=== PATIENT | male | born 1975 | race Caucasian/White ===

== ENCOUNTER 2017-11-22 08:03 | Emergency (ER) | payer OTHER ==
[2017-11-22 08:30] VITALS: BP 128/78
--- NOTE | 2017-11-22 08:51 | RAD ---
Indication: Right little toe injury. 3 views of the right little toe demonstrates no fracture. No other bone or joint abnormality is identified. IMPRESSION: No fracture of the right toe is noted.
--- NOTE | 2017-11-22 14:42 | UC ---
Austin Gonzalez Stephanie, scribed for Cecille Coronado MD on 11/22/17 at 0828 . Lower Extremity/Ankle HPI - HPI Summary HPI Summary: The pt is a 42 y/o M presenting to with c/o toe pain that began yesterday morning s/p hitting his toe against a wall. The pt reports walking around for 6 hrs s/p incident. - History of Current Complaint Stated Complaint: TOE INJURY Time Seen by Provider: 11/22/17 08:15 Hx Obtained From: Patient Onset/Duration: Sudden Onset, Lasting Days - 1, Still Present Severity Currently: Mild Aggravating Factor(s): Ambulation Alleviating Factor(s): Rest Able to Bear Weight: Yes - Allergies/Home Medications Allergies/Adverse Reactions: Allergies Allergy/AdvReac Type Severity Reaction Status Date / Time MS Penicillins [PCN] Allergy Rash Verified 11/22/17 08:31 Home Medications: Home Medications NK [No Home Medications Reported] 11/22/17 [History Confirmed 11/22/17] PMH/Surg Hx/FS Hx/Imm Hx Previously Healthy: Yes - Pt denies all relevant past medical history. - Surgical History Surgical History: None - Family History Known Family History: Negative: Diabetes - Social History Occupation: Employed Part-time Lives: With Family Substance Use Type: None Review of Systems Constitutional: Negative Skin: Negative Eyes: Negative ENT: Negative Respiratory: Negative Cardiovascular: Negative Gastrointestinal: Negative Genitourinary: Negative Motor: Negative Neurovascular: Negative Musculoskeletal: Other: - R 5th digit pain Neurological: Negative Psychological: Negative All Other Systems Reviewed And Are Negative: Yes Physical Exam Triage Information Reviewed: Yes Appearance: No Pain Distress, Well-Nourished Vital Signs Reviewed: Yes Eye Exam: Normal - grossly normal Neck exam: Normal - no complaints Respiratory Exam: Normal - no tachypnea no dsypnea Cardiovascular Exam: Normal - regular rate, good skin color Abdominal Exam: Normal Musculoskeletal Exam: Other - R 5th toe + redness, swelling. Some echymosis distal 5th toe. Cap ref is good. Nail intact. No open sores appreciated. Tender to pressure distal tip of toe. MTP nontender. DP/PT good. No other injury reported. Foot not swollen. Distal sensation LT present. Neurological Exam: Normal - nonfocal, grossly normal Psychological Exam: Normal - conversing easily and appropriately Skin Exam: Normal - except r 5 toe Diagnostics - Radiology Toe XRay Xray Interpretation: No Acute Changes Radiology Interpretation Completed By: Radiologist - No fracture of the right toe is noted. Lower Extremity Course/Dx - Course Course Of Treatment: XRAY R 5th toe - NAD. Declined post op shoe. Reviewed COA / tx plan. Questions as posed answered to the best of my ability. - Differential Dx/Diagnosis Provider Diagnoses: R 5th toe contusion, echymosis 2/2 crush injury against wall Discharge - Discharge Plan Condition: Stable Disposition: HOME Patient Education Materials: Ibuprofen (By mouth), Hematoma (ED), Crush Injury (ED) Referrals: Elizabeth Zafar MD [Primary Care Provider] - Additional Instructions: Please follow up with your primary care provider in 1-2 weeks. Seek medical attention for worse or new problems in the meantime. The documentation as recorded by the Austin oleary Stephanie accurately reflects the service I personally performed and the decisions made by me, Cecille Coronado MD.
== END 2017-11-22 09:17 | disposition home or self-care (01) ==
LOC: UCEAST 08:03
DX: S90.121A Contusion of right lesser toe(s) without damage to nail, initial encounter (principal); S97.121A Crushing injury of right lesser toe(s), initial encounter; W22.8XXA Striking against or struck by other objects, initial encounter; Y92.9 Unspecified place or not applicable
CPT/HCPCS: 99201; G0463